=== PATIENT | female | born 1960 | race Caucasian/White ===

== ENCOUNTER → 2017-03-13 | Outpatient (REF) ==
[~2017-03-13] MED LIST: AZITHROMYCIN250 MG PO; CEPHALEXIN500 M1 PO; EXCEDRIN MIGRAI1 TAB PO
== END ==
LOC: ZLAB.WCH 20:27
DX: Z01.89 Encounter for other specified special examinations (principal)

== ENCOUNTER 2017-11-24 08:28 | Emergency (ER) | payer SELFPAY ==
[~2017-11-24] VITALS: Ht 177.8 cm; Wt 61.4 kg
[2017-11-24] MEDS ORDERED: MAGNESIUM200 MG PO (08:34)
[2017-11-24] MEDS ORDERED: HCTZ 25MG TAB25 MG PO (08:35)
[2017-11-24 09:17] LABS: BASO % 0.4 % (0.0-2.0); EOS # 0.1 (0.0-0.7); EOS % 0.9 % (0-4.0); GRAN # 5.3 (1.4-6.5); GRAN % 76.6 % (42.2-75.2); HEMATOCRIT 48.2 % (37.0-47.0); HEMOGLOBIN 16.3 g/dl (12.5-16.0); LYMPH % 14.8 % (20.0-51.0); MEAN CELL VOLUME 94 fl (80.0-100.0); MEAN CORPUSCULAR HEMOGLOBIN 32 pg (27.0-31.0); MEAN CORPUSCULAR HGB CONC 34 g/dl (33.0-37.0); MEAN PLATELET VOLUME 9.7 fl (7.4-10.4); MONO # 0.5 (0.1-0.6); PLATELET COUNT 223 K/mm3 (130-400); RED BLOOD COUNT 5.14 M/mm3 (4.10-5.30); REDCELL DISTRIBUTION WIDTH-CV 13.3 % (11.5-14.5)
[2017-11-24 09:35] LABS: ALBUMIN 4.5 gm/dL (3.5-5.0); BILIRUBIN,TOTAL 0.7 mg/dL (0.0-1.0); CALCIUM 9.8 mg/dL (8.4-10.2); CREATININE, serum 0.67 mg/dL (0.52-1.25); POTASSIUM 3.2 mmol/L (3.4-5.0); TOTAL PROTEIN 8.5 gm/dL (6.4-8.2)
[2017-11-24 09:46] LABS: TROPONIN-I 0.02 ng/mL (0.000-0.034)
[2017-11-24 10:39] LABS: COLLECTION METHOD CLEAN CATCH
[2017-11-24 10:45] LABS: PH 7 (5-8); SQUAMOUS EPITHELIAL 0-2 /hpf; URINE APPEARANCE Clear; URINE BACTERIA None Seen /hpf; URINE BILIRUBIN Negative (NEGATIVE); URINE BLOOD Negative (NEGATIVE); URINE COLOR Straw; URINE GLUCOSE Negative (NEGATIVE); URINE KETONE Trace (NEGATIVE); URINE LEUKOCYTE ESTERASE Negative (NEGATIVE); URINE NITRATE Negative (NEGATIVE); URINE PROTEIN(semi-quant) Negative (NEGATIVE); URINE RBC 0-2 /hpf; URINE UROBILINOGEN Negative (NEGATIVE)
[2017-11-24 13:15] VITALS: BP 114/80; PULSE 58; TEMP 97.9
== END 2017-11-24 13:35 | disposition home or self-care (01) ==
LOC: COL.ER 08:28
PROVIDERS: Emergency Medicine
DX: R53.81 Other malaise (principal); R53.83 Other fatigue; R42 Dizziness and giddiness; G43.909 Migraine, unspecified, not intractable, without status migrainosus; F17.210 Nicotine dependence, cigarettes, uncomplicated
CPT/HCPCS: J7030